=== PATIENT | female | born 1975 | race Two or more races ===

== ENCOUNTER 2021-02-17 05:45 | Day surgery (SDC) | payer OTHER ==
[~2021-02-17 05:45] MED LIST: CLONAZEPAM1 MG PO; ZOLOFT100 MG PO
[2021-02-17] MEDS ORDERED: PEPCID AC20 MG PO (08:38)
[2021-02-17] MEDS ORDERED: ESOMEPRAZOLE MA40 MG PO (08:40)
[2021-02-17] MEDS ORDERED: PERCOCET 5-3251 EACH PO (08:41)
[2021-02-17] MEDS ORDERED: DICLOFENAC SODI75 MG PO (08:42)
== END 2021-02-17 11:20 | disposition home or self-care (01) ==
LOC: CIR.AMB 05:45
PROVIDERS: ATTEND Surgery
DX: K81.1 Chronic cholecystitis (principal); Z20.822 Contact with and (suspected) exposure to COVID-19